=== PATIENT | female | born 1990 | race Caucasian/White ===

== ENCOUNTER 2019-07-26 04:06 | Emergency (ER) | payer SELFPAY ==
[~2019-07-26] VITALS: Ht 175.3 cm; Wt 82.6 kg
[2019-07-26 04:08] VITALS: Ht 175.3 cm; Wt 82.6 kg
[2019-07-26 05:02] VITALS: BP 124/61
== END 2019-07-26 05:04 | disposition short-term general hospital (02) ==
LOC: ED 04:06
DX: O20.9 Hemorrhage in early pregnancy, unspecified (principal); Z3A.37 37 weeks gestation of pregnancy
CPT/HCPCS: Q0092